=== PATIENT | female | born 1950 | race Caucasian/White ===

== ENCOUNTER 2016-11-12 11:08 | Emergency (ER) | payer MEDICARE, BC, OTHER ==
[~2016-11-12] VITALS: Ht 160 cm; Wt 45.8 kg
[~2016-11-12 11:08] MED LIST: COMBIVENT1 PUFF INH; DUONEB 2.5-0.5MG3 M1 INH; FLAGYL500 MG PO; FOSAMAX70 M1 PO; LOVENOX40 MG/0.4 SQ; MULTIVITAMIN1 TAB PO; NO MEDICATIONS; NORVASC5 M2 PO; NUCYNTA50 MG PO; PERCOCET 5/3251 TAB PO; TYLENOL325 MG PO; VALIUM5 M1 PO; VITAMIN D1000 UNI1 PO
[2016-11-12] MEDS ORDERED: IBUPROFEN600 M1 PO (12:12)
[2016-11-12] MEDS ORDERED: COMBIVENT RESPIM4 G1 INH (12:16)
[2016-11-12] MEDS ORDERED: CALCIUM + VITA1 EAC4 PO (12:17)
[2016-11-12] MEDS ORDERED: VITAMIN C500 M2 PO (12:17)
[2016-11-12] MEDS ORDERED: POTASSIUM PO (12:18)
[2016-11-12 12:19] LABS: BASO % 0.3 % (0-2); EOS % 1.5 % (0-7); EOSINOPHIL ABSOLUTE COUNT 0.1 tho/cmm (0.0-0.7); HCT-HEMATOCRIT 37.9 % (34.0-49.0); HGB-HEMOGLOBIN 13.2 gm/dl (12.0-15.5); IMMATURE GRANULOCYTES ABSOLUTE 0.01 tho/cmm (0-0.03); IMMATURE GRANULOCYTES PERCENT 0.1 % (0-0.3); LYMPH % 32.2 % (20-45); LYMPH ABSOLUTE COUNT 2.4 tho/cmm (0.8-4.5); MCH (MEAN CORPUSCULAR HGB) 34.1 pg (28.0-32.0); MCHC MEAN CORPUSCULAR HGB CONC 34.8 % (32.0-36.0); MCV (MEAN CELL VOLUME) 97.9 fl (82.0-96.0); MEAN PLATELET VOLUME 9.8 cmc (9.4-12.4); MONO % 7.1 % (0-12); MONOCYTE ABSOLUTE COUNT 0.5 tho/cmm (0.0-1.2); NEUTROPHIL ABSOLUTE COUNT 4.3 tho/cmm (1.6-8.0); NEUTROPHIL-AUTOMATED 4.3 tho/cmm (1.6-8.0); NEUTROPHILS % 58.8 % (40-80); PLATELET COUNT 248 tho/cmm (150-450); RED BLOOD COUNT 3.87 mil/cmm (4.00-5.20); WHITE BLOOD COUNT 7.3 tho/cmm (4.0-10.0)
[2016-11-12 12:35] LABS: ALB/GLOB RATIO 1.1 (0.8-2.0); ALBUMIN 4.3 g/dl (3.5-5.0); ALKALINE PHOSPHATASE 99 U/L (33-138); ALT/SGPT 26 U/L (12-78); ANION GAP 14 mmol/L (0-20); AST/SGOT 31 U/L (10-40); BILIRUBIN,TOTAL 0.3 mg/dl (0-1.5); BLOOD UREA NITROGEN 8 mg/dl (6-24); CALCIUM 9.5 mg/dl (8.5-10.5); CARBON DIOXIDE-VENOUS 23 mmol/L (22-32); CHLORIDE 103 mmol/l (96-110); CREATININE 0.89 mg/dl (0.50-1.10); GLUCOSE 80 mg/dL (70-110); POTASSIUM 3.7 mmol/L (3.7-5.1); SODIUM 136 mmol/L (135-145); eGFR VALUE FOR BLACK 78 mL/Min
[2016-11-12] MEDS ORDERED: TETRACYCLINE H500 M1 PO (13:07)
[2016-11-12] MEDS ORDERED: MUPIROCIN22 G2 TP (13:07)
[2016-11-19] MEDS ORDERED: POTASSIUM GLUC500 MG PO (11:04)
[2016-11-19] MEDS ORDERED: SUPER B COMPLE1 EAC2 PO (11:04)
[2016-11-19] MEDS ORDERED: VALIUM10 M1 PO (11:05)
[2016-11-19] MEDS ORDERED: CULTURELLE1 EAC1 PO (11:06)
== END 2016-11-12 13:39 ==
LOC: EDMED 11:08
PROVIDERS: Emergency Medicine
DX: B95.8 Unspecified staphylococcus as the cause of diseases classified elsewhere (principal); J44.9 Chronic obstructive pulmonary disease, unspecified; F17.200 Nicotine dependence, unspecified, uncomplicated; Z86.19 Personal history of other infectious and parasitic diseases; Z88.2 Allergy status to sulfonamides; Z79.899 Other long term (current) drug therapy